=== PATIENT | female | born 1995 | race Caucasian/White ===

== ENCOUNTER 2018-03-09 23:25 | Emergency (ER) | payer OTHER ==
[2018-03-09] MEDS: EPINEPHrine 1 MG INJ IM (23:58)
[2018-03-10] MEDS: METHYLPREDNISOLONE 125 MG INJ IV ×2 (00:06→08:00)
[2018-03-10] MEDS: FAMOTIDINE 20 MG INJ IV (00:06)
[2018-03-10] MEDS: DIPHENHYDRAMINE 50 MG INJ IV ×2 (00:06→08:38)
[2018-03-10] MEDS: ALBUTEROL 0.083% (NEB) 2.5 MG/3 ML AMP INH (00:16)
[2018-03-10] MEDS: IPRATROPIUM (NEB) 0.5 MG/2.5 ML AMP INH (00:16)
[2018-03-10] MEDS: OXYMETAZOLINE 0.05% 15 ML NAS SPRAY NASAL (03:32)
[2018-03-10 04:19] LABS: URINE BLOOD (Dip) POC Negative (NEGATIVE); URINE KETONES (Dip) POC Negative (NEGATIVE); URINE LEUKOCYTE EST (Dip) POC Negative (NEGATIVE); URINE NITRITE (Dip) POC Negative (NEGATIVE); URINE TOTAL PROTEIN POC Negative (NEGATIVE)
[2018-03-10] MEDS ORDERED: LORAZEPAM 2 MG INJ IV (07:30)
[2018-03-10] MEDS ORDERED: morphine 2 MG INJ IV (07:30)
[2018-03-10] MEDS ORDERED: NACL 0.9% 3 ML SYG IV (07:30)
[2018-03-10] MEDS ORDERED: ONDANSETRON 4 MG INJ IV (07:30)
[2018-03-10] MEDS ORDERED: ALBUTEROL/IPRATROPIUM (NEB) 3 ML AMP HHN (07:30)
[2018-03-10] MEDS ORDERED: EPINEPHrine 1 MG INJ SC (07:30)
[2018-03-10] MEDS: FUROSEMIDE 20 MG INJ IV (08:00)
== END 2018-03-10 08:50 | disposition home or self-care (01) ==
LOC: FTE 23:25 → E/R 03-10 08:50
DX: T78.2XXA Anaphylactic shock, unspecified, initial encounter (principal)
CPT/HCPCS: 81003; 81025; 94664; 96372; 96374; 96375; 96376; 99284-25